=== PATIENT | female | born 1960 | race Hispanic/Latino ===

== ENCOUNTER → 2017-04-10 | Outpatient (CLI) | payer MEDICARE ==
[~2017-04-10] MED LIST: ASPI-1181 PO; ATOR20TA65 PO; FURO20TA4 PO; GLIM2TAB3 PO; ISOS30TA6 PO; LISI10TA7 PO; LISI40TA4 PO; METF10004 PO; METO25TA3 PO; MONT10TA24 PO; PANT40TA25 PO; POTA20TA82 PO; POTA25TA13 PO; SERT100T12 PO; TRAM50TA2 PO
== END | disposition home or self-care (01) ==
LOC: RAH 08:27
PROVIDERS: ATTEND Family Medicine
DX: Z12.31 Encounter for screening mammogram for malignant neoplasm of breast (principal)
CPT/HCPCS: 77067

== ENCOUNTER 2017-05-07 18:00 | Inpatient (IN) | payer MEDICARE ==
[~2017-05-07] VITALS: Ht 175.3 cm; Wt 76.7 kg
[~2017-05-07 18:00] MED LIST changes: -ASPI-1181 PO; -ISOS30TA6 PO; -LISI10TA7 PO; -METO25TA3 PO; -MONT10TA24 PO; -PANT40TA25 PO; -POTA20TA82 PO; -TRAM50TA2 PO
[2017-05-07 18:23] LABS: BASOPHILS % (AUTO) 0.7 % (0.0-5.0); EOSINOPHILS % (AUTO) 1.1 % (0.0-8.0); HEMATOCRIT 37.3 % (36-48); LYMPHOCYTES % (AUTO) 28.3 % (21.0-51.0); MEAN CORPUSCULAR HEMOGLOBIN 29.3 pg (27.0-33.0); MEAN CORPUSCULAR HGB CONC 33.3 g/dL (32.0-36.0); MEAN CORPUSCULAR VOLUME 87.9 fL (79-99); MONOCYTES % (AUTO) 7.5 % (3.0-13.0); NEUTROPHILS % (AUTO) 62.4 % (40.0-77.0); PLATELET COUNT (AUTO) 270 K/uL (130-400); RED BLOOD CELL COUNT(AUTO) 4.24 MIL/uL (4.00-5.50); RED CELL DISTRIBUTION WIDTH 15.7 % (11.0-15.5); WHITE BLOOD COUNT (AUTO) 5.7 K/uL (4.8-10.8)
[2017-05-07 18:31] LABS: INR 0.95 (0.85-1.15); PARTIAL THROMBOPLASTIN TIME 23.4 SEC (26.3-35.5)
[2017-05-07 18:35] LABS: CREATININE 0.9 mg/dL (0.5-1.5); POTASSIUM 3.7 mmol/L (3.5-5.1)
[2017-05-07 18:40] LABS: ALBUMIN 3.5 g/dL (3.5-5.0); BILIRUBIN,TOTAL 0.3 mg/dL (0.2-1.0); TOTAL PROTEIN, SERUM 7.8 g/dL (6.0-8.3)
[2017-05-07] MEDS ORDERED: ASPIRIN 325 MG TABLET ONE (19:19)
[2017-05-07] MEDS ORDERED: ENOXAPARIN SODIUM 100 MG/1 ML SQ ONE (19:19)
[2017-05-07] MEDS ORDERED: NITROGLYCERIN 1GM/1 INCH PACKET TD ONE (20:33)
[2017-05-07] MEDS ORDERED: PANT40TA25 PO (21:16)
[2017-05-07] MEDS ORDERED: MONT10TA24 PO (21:19)
[2017-05-07] MEDS ORDERED: PANTOPRAZOLE SODIUM 40 MG TABLET.DR PO PRN (21:30)
[2017-05-07] MEDS: METOPROLOL TARTRATE 25 MG TAB PO SCH (21:49)
[2017-05-07] MEDS ORDERED: GLUCAGON 1MG KIT 1 MG ML IM PRN (22:00)
[2017-05-07] MEDS ORDERED: POTASSIUM CHLORIDE 20MEQ/100ML 100 ML IV PRN (22:00)
[2017-05-07] MEDS ORDERED: POTASSIUM CHLORIDE 20 MEQ ERTAB PO PRN (22:00)
[2017-05-07] MEDS ORDERED: LACTULOSE 20 GM/30 ML UDCUP PO PRN (22:00)
[2017-05-07] MEDS ORDERED: DEXTROSE 50%-WATER 50 ML DISP.SYRIN IV PRN (22:00)
[2017-05-07] MEDS ORDERED: ACETAMINOPHEN 325 MG TAB PO PRN ×2 (22:00)
[2017-05-07] MEDS ORDERED: LIDOCAINE HCL-MPF 1% 2ML VIAL IJ PRN (22:00)
[2017-05-07] MEDS ORDERED: POTASSIUM CHLORIDE 10% ELIXIR 20 MEQ/15 ML UDCUP PO PRN (22:00)
[2017-05-07] MEDS: SERTRALINE HCL 50 MG TABLET PO SCH (22:31)
[2017-05-07] MEDS: FAMOTIDINE 20MG TAB 20 MG TAB PO SCH (22:31)
[2017-05-07 23:22] VITALS: BP 128/72
[2017-05-08 00:14] LABS: CREATINE KINASE MB 0.5 ng/mL (0.5-3.6); CREATINE KINASE, TOTAL 41 U/L (21-232); MYOGLOBIN 43 ng/mL (10-92); TROPONIN I < 0.04 ng/mL (0.00-0.06)
[2017-05-08 03:39] VITALS: BP 147/74
[2017-05-08] MEDS: NITROGLYCERIN 1GM/1 INCH PACKET TD SCH ×3 (04:14→20:35)
[2017-05-08] MEDS: INSULIN R PO SSI SQ SCH ×4 (06:28→21:00)
[2017-05-08 06:30] LABS: HEMATOCRIT 33.8 % (36-48); MEAN CORPUSCULAR HEMOGLOBIN 30.2 pg (27.0-33.0); MEAN CORPUSCULAR HGB CONC 34.5 g/dL (32.0-36.0); MEAN CORPUSCULAR VOLUME 87.6 fL (79-99); NUCLEATED RED BLOOD CELLS 0.1 % (0.0-0.19); PLATELET COUNT (AUTO) 242 K/uL (130-400); RED BLOOD CELL COUNT(AUTO) 3.86 MIL/uL (4.00-5.50); RED CELL DISTRIBUTION WIDTH 15.4 % (11.0-15.5); WHITE BLOOD COUNT (AUTO) 4.9 K/uL (4.8-10.8)
[2017-05-08 06:53] LABS: CARBON DIOXIDE 33 mmol/L (21-32); CHLORIDE 110 mmol/L (101-111); CHOLESTEROL 146 mg/dL (<200); CREATINE KINASE MB 0.5 ng/mL (0.5-3.6); CREATINE KINASE, TOTAL 44 U/L (21-232); CREATININE 0.8 mg/dL (0.5-1.5); GLOMERULAR FILTR. RATE CALC 78 mL/min (>60); GLUCOSE,RANDOM 104 mg/dL (70-105); HDL CHOLESTEROL 64 mg/dL (35-85); LDL DIRECT 76 mg/dL (0-99); MYOGLOBIN 39 ng/mL (10-92); SODIUM SERUM 145 mmol/L (136-145); TRIGLYCERIDES 139 mg/dL (30-200); TROPONIN I < 0.04 ng/mL (0.00-0.06); UREA NITROGEN, BLOOD 15 mg/dL (7-18)
[2017-05-08 06:59] LABS: INR 1.02 (0.85-1.15); PARTIAL THROMBOPLASTIN TIME 27.8 SEC (26.3-35.5); PROTHROMBIN TIME 10.7 SEC (9.6-11.6)
[2017-05-08 08:00] VITALS: BP 114/60
[2017-05-08] MEDS: METFORMIN HCL 500 MG TABLET PO SCH ×2 (08:00→16:53)
[2017-05-08] MEDS: METOPROLOL TARTRATE 25 MG TAB PO SCH ×2 (08:54→20:34)
[2017-05-08] MEDS: ASPIRIN 325 MG TABLET PO SCH (08:56)
[2017-05-08] MEDS: MONTELUKAST SODIUM 10 MG TAB PO SCH (08:56)
[2017-05-08] MEDS: FAMOTIDINE 20MG TAB 20 MG TAB PO SCH ×2 (08:56→20:34)
[2017-05-08] MEDS ORDERED: REGADENOSON 0.4 MG/5 ML PF SYG IVP SCH (10:15)
[2017-05-08] MEDS: INSULIN HUMULIN R 100 UNIT/ML 3ML SQ SCH ×3 (11:30→21:00)
[2017-05-08 12:45] VITALS: BP 138/75
[2017-05-08 16:00] VITALS: BP 137/65
[2017-05-08 19:42] VITALS: BP 152/72
[2017-05-08] MEDS: SERTRALINE HCL 50 MG TABLET PO SCH (20:33)
[2017-05-08] MEDS ORDERED: GLIMEPIRIDE 2 MG TABLET PO SCH (21:00)
[2017-05-08] MEDS ORDERED: FUROSEMIDE 20 MG TABLET PO SCH (21:00)
[2017-05-08] MEDS ORDERED: ATORVASTATIN CALCIUM 20 MG TABLET PO SCH (21:00)
[2017-05-08] MEDS ORDERED: LISINOPRIL 40 MG TABLET PO SCH (21:00)
[2017-05-08 23:25] VITALS: BP 128/66
[2017-05-09] VITALS (11 sets, daily range): BP systolic 99–147; BP diastolic 53–73
[2017-05-09] MEDS: NITROGLYCERIN 1GM/1 INCH PACKET TD SCH (03:47)
[2017-05-09] MEDS: INSULIN R PO SSI SQ SCH ×3 (05:40→16:30)
[2017-05-09] MEDS: INSULIN HUMULIN R 100 UNIT/ML 3ML SQ SCH ×3 (05:40→16:30)
[2017-05-09] MEDS: METFORMIN HCL 500 MG TABLET PO SCH ×2 (08:00→08:45)
[2017-05-09] MEDS: METOPROLOL TARTRATE 25 MG TAB PO SCH ×2 (08:45→09:00)
[2017-05-09] MEDS: FAMOTIDINE 20MG TAB 20 MG TAB PO SCH ×2 (08:45→09:00)
[2017-05-09] MEDS: ASPIRIN 325 MG TABLET PO SCH ×2 (08:45→09:00)
[2017-05-09] MEDS: MONTELUKAST SODIUM 10 MG TAB PO SCH ×2 (08:45→09:00)
[2017-05-09] MEDS: ENOXAPARIN SODIUM 40 MG/0.4 ML SYRINGE SQ SCH ×2 (08:46→09:00)
[2017-05-09] MEDS ORDERED: SODIUM CHLORIDE 0.9% 500ML 500 ML IV SCH (14:48)
[2017-05-09] MEDS ORDERED: HEPARIN SODIUM 1000UNIT/ML 10ML VIAL ONE (14:56)
[2017-05-09] MEDS ORDERED: NITROGLYCERIN 5 MG/ML 10 ML VIAL IV ONE (14:56)
[2017-05-09] MEDS ORDERED: ISOVUE-370 50ML VIAL IV ONE (14:56)
[2017-05-09] MEDS ORDERED: IOPAMIDOL-370 100 ML VIAL IV ONE ×2 (14:56→15:25)
[2017-05-09] MEDS ORDERED: LIDOCAINE HCL 2% 20ML ONE (14:56)
[2017-05-09] MEDS ORDERED: FENTANYL CITRATE PF 50 MCG/1 ML 2ML VIAL ONE (15:13)
[2017-05-09] MEDS ORDERED: MIDAZOLAM HCL 1 MG/ML 2ML VIAL ONE (15:13)
[2017-05-09] MEDS ORDERED: BIVALIRUDIN 250 MG/VIAL IV ONE (15:25)
[2017-05-09] MEDS ORDERED: SODIUM CHLORIDE 0.9% 1000ML 1,000 ML IV SCH (15:42)
[2017-05-09] MEDS ORDERED: HYDRALAZINE HCL 20 MG/ML VIAL IV PRN (15:45)
[2017-05-09] MEDS ORDERED: METOPROLOL TARTRATE 1 MG/ML 5ML VIAL IV PRN (15:45)
[2017-05-09] MEDS ORDERED: METO25TA3 PO (15:55)
[2017-05-09] MEDS ORDERED: ISOS30TA6 PO (15:55)
[2017-05-10] MEDS ORDERED: ASPIRIN 325 MG TABLET PO SCH (09:00)
[2017-05-14] MEDS ORDERED: POTA20TA82 PO (10:01)
[2017-05-14] MEDS ORDERED: ASPI-1181 PO (10:12)
== END 2017-05-09 20:33 | disposition home or self-care (01) | DRG 287 ==
LOC: EDH 18:00 → EDHIP 19:20 → OBSVTOIN 19:20 → 2AH 20:57
PROVIDERS: ADMIT Family Medicine; ATTEND Family Medicine
PROC: 4A023N7 Measurement of Cardiac Sampling and Pressure, Left Heart, Percutaneous Approach (ICD-10-PCS; principal; 2017-05-09)
PROC: B2111ZZ Fluoroscopy of Multiple Coronary Arteries using Low Osmolar Contrast (ICD-10-PCS; 2017-05-09)
PROC: B2151ZZ Fluoroscopy of Left Heart using Low Osmolar Contrast (ICD-10-PCS; 2017-05-09)
PROC: B3121ZZ Fluoroscopy of Left Subclavian Artery using Low Osmolar Contrast (ICD-10-PCS; 2017-05-09)
DX: T82.855A Stenosis of coronary artery stent, initial encounter (principal); E11.319 Type 2 diabetes mellitus with unspecified diabetic retinopathy without macular edema; E11.40 Type 2 diabetes mellitus with diabetic neuropathy, unspecified; I25.110 Atherosclerotic heart disease of native coronary artery with unstable angina pectoris; E78.2 Mixed hyperlipidemia; F32.9 Major depressive disorder, single episode, unspecified; I10 Essential (primary) hypertension; Y83.1 Surgical operation with implant of artificial internal device as the cause of abnormal reaction of the patient, or of later complication, without mention of misadventure at the time of the procedure; K29.70 Gastritis, unspecified, without bleeding; Z82.49 Family history of ischemic heart disease and other diseases of the circulatory system; Y92.89 Other specified places as the place of occurrence of the external cause; Z28.21 Immunization not carried out because of patient refusal; Z98.84 Bariatric surgery status; Z88.0 Allergy status to penicillin
CPT/HCPCS: 36415; 71045; 78452; 80048; 80053; 80061; 82550; 82553; 82948; 83874; 84484; 85025; 85027; 85610; 85730; 93005; 93017; 93458; 96374; 99152; 99153; 99291; A9500; C1760; C1894; J0583; J1644; J1650; J2250; J2785; J3010; J3490; Q9967

== ENCOUNTER 2017-05-14 11:30 | Inpatient (IN) | payer MEDICARE ==
[~2017-05-14] VITALS: Ht 170.2 cm; Wt 78.5 kg
[2017-05-14 09:55] VITALS: BP 90/60
[2017-05-14 10:01] LABS: BASOPHILS % (AUTO) 0.6 % (0.0-5.0); EOSINOPHILS % (AUTO) 1.5 % (0.0-8.0); HEMATOCRIT 35.5 % (36-48); LYMPHOCYTES % (AUTO) 33.6 % (21.0-51.0); MEAN CORPUSCULAR HEMOGLOBIN 29.6 pg (27.0-33.0); MEAN CORPUSCULAR VOLUME 87.2 fL (79-99); MONOCYTES % (AUTO) 10.2 % (3.0-13.0); NEUTROPHILS % (AUTO) 54.1 % (40.0-77.0); PLATELET COUNT (AUTO) 275 K/uL (130-400); RED BLOOD CELL COUNT(AUTO) 4.07 MIL/uL (4.00-5.50); RED CELL DISTRIBUTION WIDTH 15.8 % (11.0-15.5); WHITE BLOOD COUNT (AUTO) 5.3 K/uL (4.8-10.8)
[2017-05-14 10:11] LABS: ALBUMIN 3.5 g/dL (3.5-5.0); BILIRUBIN,TOTAL 0.4 mg/dL (0.2-1.0); CREATININE 1.5 mg/dL (0.5-1.5); POTASSIUM 3.4 mmol/L (3.5-5.1); TOTAL PROTEIN, SERUM 7.7 g/dL (6.0-8.3)
[2017-05-14 10:18] LABS: HEMOGLOBIN A1C 7.3 % (4.0-6.0)
[2017-05-14 10:19] LABS: INR 0.93 (0.85-1.15); PARTIAL THROMBOPLASTIN TIME 24.2 SEC (26.3-35.5); PROTHROMBIN TIME 9.8 SEC (9.6-11.6)
[~2017-05-14 11:30] MED LIST changes: +ASPI-1181 PO; +CLINDAMYCIN 900 MG/D5% WATER 50 ML IV SCH; +ISOS30TA6 PO; +METO25TA3 PO; +MONT10TA24 PO; +PANT40TA25 PO; +POTA20TA82 PO; -POTA25TA13 PO
[2017-05-14 15:35] LABS: CHOLESTEROL 151 mg/dL (<200); HDL CHOLESTEROL 78 mg/dL (35-85); LDL DIRECT 78 mg/dL (0-99); TRIGLYCERIDES 107 mg/dL (30-200)
[2017-05-16] VITALS (12 sets, daily range): BP systolic 98–140; BP diastolic 47–68
[2017-05-16] MEDS ORDERED: SODIUM CHLORIDE 0.9% 1000ML 1,000 ML IV ONE ×2 (11:44→15:15)
[2017-05-16] MEDS ORDERED: VANCOMYCIN 1GM+NS 250ML 250 ML IV ONE (11:44)
[2017-05-16] MEDS ORDERED: BACITRACIN 50,000 UNIT VIAL ONE (13:05)
[2017-05-16] MEDS ORDERED: OCTYL 2-CYANOACRYLATE 1 EACH TP ONE (13:05)
[2017-05-16] MEDS ORDERED: PAPAVERINE HCL 30 MG/ML 2ML VIAL ONE (13:05)
[2017-05-16] MEDS ORDERED: PROPOFOL 10 MG/ML 20ML VIAL IV ONE (13:19)
[2017-05-16] MEDS ORDERED: MIDAZOLAM HCL 1 MG/ML 2ML VIAL ONE (13:20)
[2017-05-16] MEDS ORDERED: FENTANYL CITRATE PF 50 MCG/1 ML 2ML VIAL ONE (13:20)
[2017-05-16] MEDS ORDERED: ESMOLOL HCL 10 MG/ML 10 ML VIAL ONE (13:43)
[2017-05-16] MEDS ORDERED: LIDOCAINE PF 2% 5ML ABBOJECT ONE (13:43)
[2017-05-16] MEDS ORDERED: HEPARIN SODIUM 1000UNIT/ML 10ML VIAL ONE ×2 (13:43→13:57)
[2017-05-16] MEDS ORDERED: GLYCOPYRROLATE 0.2 MG/ML 5 ML VIAL ONE (13:43)
[2017-05-16] MEDS ORDERED: ROCURONIUM BROMIDE 10MG/1ML 5ML VL ONE (13:43)
[2017-05-16] MEDS ORDERED: EPINEPHRINE 1 MG/ML AMPULE ONE (13:43)
[2017-05-16] MEDS ORDERED: PROTAMINE SULFATE 10 MG/ML 25ML VIAL IV ONE (13:43)
[2017-05-16] MEDS ORDERED: MILRINONE-D5W 20 MG/100 ML 0 ML IV ONE (13:43)
[2017-05-16] MEDS ORDERED: NOREPINEPHRINE BITARTRATE 1 MG/1 ML ML IV ONE (13:43)
[2017-05-16] MEDS ORDERED: AMINOCAPROIC ACID 250 MG/ML 20 ML VIAL IV ONE (13:43)
[2017-05-16 13:53] LABS: ABG BASE EXCESS -1.7 mmol/L (-2.0-3.0); ABG HCO3 21.5 mmol/L (21.0-28.0); ABG OXYGEN SATURATION 98.9 % (95.0-99.0); ABG PCO2 31 mmHg (32-45)
[2017-05-16] MEDS ORDERED: THROMBIN-JMI 5000 UNIT/VIAL TP ONE (13:57)
[2017-05-16 14:43] LABS: ABG BASE EXCESS -3.4 mmol/L (-2.0-3.0); ABG HCO3 20.6 mmol/L (21.0-28.0); ABG OXYGEN SATURATION 98.8 % (95.0-99.0); ABG PCO2 34 mmHg (32-45)
[2017-05-16] MEDS ORDERED: SODIUM BICARB 50MEQ 50ML VIAL ONE ×2 (14:49→17:44)
[2017-05-16 15:12] LABS: ABG BASE EXCESS -1.4 mmol/L (-2.0-3.0); ABG HCO3 22.4 mmol/L (21.0-28.0); ABG OXYGEN SATURATION 98.5 % (95.0-99.0); ABG PCO2 34 mmHg (32-45)
[2017-05-16] MEDS ORDERED: FENTANYL CITRATE PF 50 MCG/1 ML 5ML AMP IV ONE (15:16)
[2017-05-16] MEDS ORDERED: POTASSIUM CHLORIDE 20MEQ/100ML 100 ML IV ONE (15:17)
[2017-05-16] MEDS: AMBU PUMP 1 EACH EACH MISC SCH ×2 (15:29→16:16)
[2017-05-16] MEDS ORDERED: SODIUM CHLORIDE 0.9% 500ML 500 ML IV SCH (15:32)
[2017-05-16] MEDS ORDERED: EPINEPHRINE 2 MG in SODIUM CHLORIDE 0.9% 250 ML IV PRN (15:45)
[2017-05-16] MEDS ORDERED: SODIUM CHLORIDE 0.9% 10 ML VIAL IVP PRN (15:45)
[2017-05-16] MEDS ORDERED: GLUCAGON 1MG KIT 1 MG ML IM PRN (15:45)
[2017-05-16] MEDS ORDERED: ALBUMIN (HUMAN) 5% 250 ML IV PRN (15:45)
[2017-05-16] MEDS ORDERED: CALCIUM GLUCONATE 1 GM in SODIUM CHLORIDE 0.9% 50 ML IV PRN (15:45)
[2017-05-16] MEDS ORDERED: ONDANSETRON HCL MDV 20ML 2 MG/ML VIAL IV PRN (15:45)
[2017-05-16] MEDS ORDERED: SODIUM BICARB 8.4% 50ML SYRINGE IV PRN (15:45)
[2017-05-16] MEDS ORDERED: SODIUM CHLORIDE 0.9% 250 ML IV PRN (15:45)
[2017-05-16] MEDS ORDERED: SODIUM CHLORIDE 0.9% 1000ML 1,000 ML IV SCH (15:45)
[2017-05-16] MEDS ORDERED: MORPHINE SULFATE 4 MG/1ML SYG IV PRN ×2 (15:45)
[2017-05-16] MEDS ORDERED: NOREPINEPHRINE 4MG/NS 250ML 250 ML IV PRN (15:45)
[2017-05-16] MEDS ORDERED: ACETAMINOPHEN 650 MG SUPPOSITORY RC PRN (15:45)
[2017-05-16] MEDS ORDERED: DEXTROSE 50%-WATER 50 ML DISP.SYRIN IV PRN (15:45)
[2017-05-16] MEDS ORDERED: PROPOFOL 1000 MG/100 ML 100 ML IV PRN (15:45)
[2017-05-16] MEDS ORDERED: MAGNESIUM 2GM PREMIX 50ML 50 ML IV PRN (15:45)
[2017-05-16] MEDS ORDERED: NITROGLYCERIN 50 MG/D5% WATER 250 BOT IV SCH (15:45)
[2017-05-16] MEDS ORDERED: POTASSIUM PHOS 15 mMOL+NS250ML 250 ML IV PRN (15:45)
[2017-05-16 15:56] LABS: ABG BASE EXCESS -3.5 mmol/L (-2.0-3.0); ABG HCO3 20.7 mmol/L (21.0-28.0); ABG OXYGEN SATURATION 98.4 % (95.0-99.0); ABG PCO2 34 mmHg (32-45)
[2017-05-16 16:00] LABS: HEMATOCRIT 28.5 % (36-48); MEAN CORPUSCULAR HEMOGLOBIN 30.3 pg (27.0-33.0); MEAN CORPUSCULAR HGB CONC 34.7 g/dL (32.0-36.0); MEAN CORPUSCULAR VOLUME 87.3 fL (79-99); PLATELET COUNT (AUTO) 242 K/uL (130-400); RED BLOOD CELL COUNT(AUTO) 3.27 MIL/uL (4.00-5.50); RED CELL DISTRIBUTION WIDTH 15.5 % (11.0-15.5); WHITE BLOOD COUNT (AUTO) 18.2 K/uL (4.8-10.8)
[2017-05-16] MEDS: POTASSIUM CHLORIDE 20MEQ/100ML 100 ML IV PRN ×3 (16:06→23:07)
[2017-05-16] MEDS: INSULIN REGULAR, HUMAN 3ML 100 UNIT in SODIUM CHLORIDE 0.9% 99 ML IV SCH ×2 (16:08)
[2017-05-16 16:16] LABS: CREATININE 0.9 mg/dL (0.5-1.5); MAGNESIUM 2.3 mg/dL (1.80-2.40); PHOSPHORUS 3.5 mg/dL (2.5-4.9); POTASSIUM 3.4 mmol/L (3.5-5.1)
[2017-05-16 21:38] LABS: MAGNESIUM 2.1 mg/dL (1.80-2.40); POTASSIUM 3.4 mmol/L (3.5-5.1)
[2017-05-16 21:42] LABS: ABG BASE EXCESS -1.7 mmol/L (-2.0-3.0); ABG HCO3 23.5 mmol/L (21.0-28.0); ABG OXYGEN SATURATION 97.9 % (95.0-99.0); ABG PCO2 42 mmHg (32-45)
[2017-05-16 22:58] LABS: ABG BASE EXCESS -0.9 mmol/L (-2.0-3.0); ABG OXYGEN SATURATION 98.2 % (95.0-99.0); ABG PCO2 41 mmHg (32-45)
[2017-05-16] MEDS: CLINDAMYCIN 900 MG/D5% WATER 50 ML IV SCH (23:44)
[2017-05-16] MEDS: HYDROCODONE/ACETAMINOPHEN 5/325 MG TAB PO PRN (23:56)
[2017-05-17] VITALS (29 sets, daily range): BP systolic 67–132; BP diastolic 39–75
[2017-05-17 04:08] LABS: HEMATOCRIT 26.6 % (36-48); MEAN CORPUSCULAR HEMOGLOBIN 29.5 pg (27.0-33.0); MEAN CORPUSCULAR HGB CONC 33.8 g/dL (32.0-36.0); MEAN CORPUSCULAR VOLUME 87.2 fL (79-99); PLATELET COUNT (AUTO) 220 K/uL (130-400); RED BLOOD CELL COUNT(AUTO) 3.05 MIL/uL (4.00-5.50); RED CELL DISTRIBUTION WIDTH 15.8 % (11.0-15.5); WHITE BLOOD COUNT (AUTO) 10.8 K/uL (4.8-10.8)
[2017-05-17 04:28] LABS: CREATININE 0.8 mg/dL (0.5-1.5); MAGNESIUM 2.2 mg/dL (1.80-2.40); PHOSPHORUS 2.6 mg/dL (2.5-4.9); POTASSIUM 4.1 mmol/L (3.5-5.1)
[2017-05-17] MEDS: POTASSIUM CHLORIDE 20MEQ/100ML 100 ML IV PRN (04:46)
[2017-05-17] MEDS: ACETAMINOPHEN 325 MG TAB PO PRN (05:27)
[2017-05-17] MEDS: HYDROCODONE/ACETAMINOPHEN 5/325 MG TAB PO PRN ×4 (05:51→20:12)
[2017-05-17] MEDS: SERTRALINE HCL 50 MG TABLET PO SCH (09:00)
[2017-05-17] MEDS: PANTOPRAZOLE SODIUM 40 MG TABLET.DR PO SCH (09:01)
[2017-05-17] MEDS: CLINDAMYCIN 900 MG/D5% WATER 50 ML IV SCH ×2 (09:02→16:00)
[2017-05-17] MEDS ORDERED: ALBUMIN (HUMAN) 5% 250 ML IV ONE (11:29)
[2017-05-17] MEDS: AMBU PUMP 1 EACH EACH MISC SCH (15:00)
[2017-05-17] MEDS: INSULIN REGULAR, HUMAN 3ML 100 UNIT in SODIUM CHLORIDE 0.9% 99 ML IV SCH ×2 (19:26)
[2017-05-17] MEDS: ATORVASTATIN CALCIUM 20 MG TABLET PO SCH (20:13)
[2017-05-18] VITALS (18 sets, daily range): BP systolic 91–136; BP diastolic 45–86
[2017-05-18] MEDS: HYDROCODONE/ACETAMINOPHEN 5/325 MG TAB PO PRN ×4 (02:07→21:12)
[2017-05-18] MEDS: ACETAMINOPHEN 325 MG TAB PO PRN (04:16)
[2017-05-18 04:39] LABS: HEMATOCRIT 26.1 % (36-48); MEAN CORPUSCULAR HEMOGLOBIN 30.9 pg (27.0-33.0); MEAN CORPUSCULAR HGB CONC 34.5 g/dL (32.0-36.0); MEAN CORPUSCULAR VOLUME 89.6 fL (79-99); PLATELET COUNT (AUTO) 192 K/uL (130-400); RED BLOOD CELL COUNT(AUTO) 2.91 MIL/uL (4.00-5.50); RED CELL DISTRIBUTION WIDTH 16.5 % (11.0-15.5); WHITE BLOOD COUNT (AUTO) 10.8 K/uL (4.8-10.8)
[2017-05-18 04:44] LABS: CREATININE 0.7 mg/dL (0.5-1.5); POTASSIUM 4.3 mmol/L (3.5-5.1)
[2017-05-18] MEDS: ASPIRIN 81MG TAB.CHEW PO SCH (08:40)
[2017-05-18] MEDS: MONTELUKAST SODIUM 10 MG TAB PO SCH (09:00)
[2017-05-18] MEDS: GLIMEPIRIDE 2 MG TABLET PO SCH (09:00)
[2017-05-18] MEDS: SERTRALINE HCL 50 MG TABLET PO SCH (09:00)
[2017-05-18] MEDS: PANTOPRAZOLE SODIUM 40 MG TABLET.DR PO SCH (11:14)
[2017-05-18] MEDS: INSULIN HUMULIN R 100 UNIT/ML 3ML SQ SCH ×3 (11:30→21:16)
[2017-05-18] MEDS: AMBU PUMP 1 EACH EACH MISC SCH (15:00)
[2017-05-18] MEDS: FUROSEMIDE 20 MG TABLET PO SCH (16:44)
[2017-05-18] MEDS ORDERED: METOPROLOL TARTRATE 25 MG TAB PO SCH (21:00)
[2017-05-18] MEDS: ATORVASTATIN CALCIUM 20 MG TABLET PO SCH (21:04)
[2017-05-18] MEDS: ENOXAPARIN SODIUM 30 MG/0.3 ML SQ SCH (21:11)
[2017-05-19 03:45] VITALS: BP 135/70
[2017-05-19] MEDS: INSULIN HUMULIN R 100 UNIT/ML 3ML SQ SCH ×4 (06:34→22:10)
[2017-05-19 07:00] VITALS: BP 143/69
[2017-05-19] MEDS: HYDROCODONE/ACETAMINOPHEN 5/325 MG TAB PO PRN ×3 (07:07→22:03)
[2017-05-19 11:00] VITALS: BP 110/60
[2017-05-19] MEDS: GLIMEPIRIDE 2 MG TABLET PO SCH (11:21)
[2017-05-19] MEDS: MONTELUKAST SODIUM 10 MG TAB PO SCH (11:21)
[2017-05-19] MEDS: ASPIRIN 81MG TAB.CHEW PO SCH (11:21)
[2017-05-19] MEDS: METOPROLOL TARTRATE 25 MG TAB PO SCH ×2 (11:21→22:01)
[2017-05-19] MEDS: PANTOPRAZOLE SODIUM 40 MG TABLET.DR PO SCH (11:22)
[2017-05-19] MEDS: FUROSEMIDE 20 MG TABLET PO SCH ×2 (11:22→18:09)
[2017-05-19] MEDS: SERTRALINE HCL 50 MG TABLET PO SCH (11:22)
[2017-05-19] MEDS: ENOXAPARIN SODIUM 30 MG/0.3 ML SQ SCH (11:23)
[2017-05-19] MEDS: AMBU PUMP 1 EACH EACH MISC SCH (15:00)
[2017-05-19 16:00] VITALS: BP 106/54
[2017-05-19 19:53] VITALS: BP 122/52
[2017-05-19] MEDS: ATORVASTATIN CALCIUM 20 MG TABLET PO SCH (22:01)
[2017-05-19] MEDS: LISINOPRIL 10 MG TABLET PO SCH (22:02)
[2017-05-19 23:28] VITALS: BP 105/56
[2017-05-20 03:52] VITALS: BP 121/60
[2017-05-20 04:24] LABS: CREATININE 0.7 mg/dL (0.5-1.5); POTASSIUM 3.4 mmol/L (3.5-5.1)
[2017-05-20] MEDS: INSULIN HUMULIN R 100 UNIT/ML 3ML SQ SCH ×3 (06:38→16:42)
[2017-05-20 07:46] VITALS: BP 132/67
[2017-05-20] MEDS: GLIMEPIRIDE 2 MG TABLET PO SCH (09:04)
[2017-05-20] MEDS: MONTELUKAST SODIUM 10 MG TAB PO SCH (09:05)
[2017-05-20] MEDS: LISINOPRIL 10 MG TABLET PO SCH (09:05)
[2017-05-20] MEDS: SERTRALINE HCL 50 MG TABLET PO SCH (09:05)
[2017-05-20] MEDS: ASPIRIN 81MG TAB.CHEW PO SCH (09:05)
[2017-05-20] MEDS: METOPROLOL TARTRATE 25 MG TAB PO SCH (09:05)
[2017-05-20] MEDS: PANTOPRAZOLE SODIUM 40 MG TABLET.DR PO SCH (09:05)
[2017-05-20] MEDS: FUROSEMIDE 20 MG TABLET PO SCH ×2 (09:05→16:41)
[2017-05-20] MEDS: HYDROCODONE/ACETAMINOPHEN 5/325 MG TAB PO PRN ×2 (09:06→16:47)
[2017-05-20] MEDS: ENOXAPARIN SODIUM 30 MG/0.3 ML SQ SCH (09:07)
[2017-05-20] MEDS ORDERED: TRAM50TA2 PO (09:21)
[2017-05-20] MEDS ORDERED: LISI10TA7 PO (09:21)
[2017-05-20 11:40] VITALS: BP 105/43
[2017-05-20] MEDS: AMBU PUMP 1 EACH EACH MISC SCH (13:50)
[2017-05-20 16:11] VITALS: BP 103/60
== END 2017-05-20 18:09 | disposition home or self-care (01) | DRG 236 ==
LOC: DAHIP 05-16 10:39 → 2CV 05-16 10:57 → 2CH 05-17 04:58 → 2AH 05-18 17:01
PROVIDERS: ADMIT Thoracic Surgery (Cardiothoracic Vascular Surgery); ATTEND Thoracic Surgery (Cardiothoracic Vascular Surgery)
PROC: 02100Z9 Bypass Coronary Artery, One Artery from Left Internal Mammary, Open Approach (ICD-10-PCS; principal; 2017-05-16 13:00)
PROC: 5A1935Z Respiratory Ventilation, Less than 24 Consecutive Hours (ICD-10-PCS; 2017-05-16 13:00)
PROC: 0BH17EZ Insertion of Endotracheal Airway into Trachea, Via Natural or Artificial Opening (ICD-10-PCS; 2017-05-16 13:00)
DX: T82.855A Stenosis of coronary artery stent, initial encounter (principal); E11.65 Type 2 diabetes mellitus with hyperglycemia; E66.01 Morbid (severe) obesity due to excess calories; I50.32 Chronic diastolic (congestive) heart failure; E78.5 Hyperlipidemia, unspecified; E87.6 Hypokalemia; F32.9 Major depressive disorder, single episode, unspecified; I10 Essential (primary) hypertension; I25.10 Atherosclerotic heart disease of native coronary artery without angina pectoris; K21.9 Gastro-esophageal reflux disease without esophagitis; G47.33 Obstructive sleep apnea (adult) (pediatric); Y83.1 Surgical operation with implant of artificial internal device as the cause of abnormal reaction of the patient, or of later complication, without mention of misadventure at the time of the procedure; Z88.0 Allergy status to penicillin; Z79.82 Long term (current) use of aspirin; Z79.84 Long term (current) use of oral hypoglycemic drugs; Z79.899 Other long term (current) drug therapy; Z98.84 Bariatric surgery status; Z95.1 Presence of aortocoronary bypass graft; Z82.49 Family history of ischemic heart disease and other diseases of the circulatory system
CPT/HCPCS: 36415; 36600; 71045; 71046; 73562; 80048; 80053; 80061; 82330; 82435; 82803; 82947; 82948; 83036; 83605; 83735; 84100; 84132; 84295; 85018; 85025; 85027; 85347; 85610; 85730; 86850; 86900; 86901; 86922; 93005; 93306; 93880; 94002; 94010; 94150; 97039; A7048; J0171; J1644; J1650; J1815; J2001; J2250; J2260; J2270; J2440; J2704; J2720; J3010; J3370; J3480; J3490; J7030; J7040; J7070; P9045

== ENCOUNTER 2017-05-14 23:00 | Emergency (ER) | payer MEDICARE ==
[~2017-05-14 23:00] MED LIST changes: -CLINDAMYCIN 900 MG/D5% WATER 50 ML IV SCH; +POTA25TA13 PO
[2017-05-15] MEDS ORDERED: ACETAMINOPHEN-CODEINE 300/30MG TAB ONE (00:08)
== END 2017-05-15 00:28 | disposition home or self-care (01) ==
LOC: EDH 23:00
DX: S80.01XA Contusion of right knee, initial encounter (principal); I25.10 Atherosclerotic heart disease of native coronary artery without angina pectoris; I10 Essential (primary) hypertension; E11.9 Type 2 diabetes mellitus without complications; Z88.0 Allergy status to penicillin; X58.XXXA Exposure to other specified factors, initial encounter; Y93.89 Activity, other specified; Y92.098 Other place in other non-institutional residence as the place of occurrence of the external cause; Y99.8 Other external cause status
CPT/HCPCS: 29505; 73562

== ENCOUNTER 2017-11-01 15:23 | Inpatient (IN) | payer MEDICARE ==
[~2017-11-01] VITALS: Ht 172.7 cm; Wt 74.6 kg
[~2017-11-01 15:23] MED LIST changes: -ISOS30TA6 PO; +LISI10TA7 PO; -LISI40TA4 PO; +METF-446 PO; -METF10004 PO; -POTA25TA13 PO; +TRAM50TA2 PO
[2017-11-01] MEDS ORDERED: NITROGLYCERIN 0.4 MG SL TAB SL ONE (15:41)
[2017-11-01] MEDS ORDERED: ASPIRIN 325 MG TABLET ONE (15:41)
[2017-11-01 15:45] LABS: BASOPHILS % (AUTO) 0.7 % (0.0-5.0); EOSINOPHILS % (AUTO) 1.2 % (0.0-8.0); HEMATOCRIT 29.8 % (36-48); LYMPHOCYTES % (AUTO) 34.1 % (21.0-51.0); MEAN CORPUSCULAR HEMOGLOBIN 25.4 pg (27.0-33.0); MEAN CORPUSCULAR HGB CONC 32.3 g/dL (32.0-36.0); MEAN CORPUSCULAR VOLUME 78.5 fL (79-99); PLATELET COUNT (AUTO) 297 K/uL (130-400); RED CELL DISTRIBUTION WIDTH 17.5 % (11.0-15.5); WHITE BLOOD COUNT (AUTO) 4.5 K/uL (4.8-10.8)
[2017-11-01] MEDS ORDERED: MORPHINE SULFATE 4 MG/1ML SYG ONE ×3 (15:54→17:39)
[2017-11-01] MEDS ORDERED: ONDANSETRON HCL 4 MG/2 ML VIAL ONE ×3 (15:54→21:13)
[2017-11-01 15:57] LABS: CREATININE 0.9 mg/dL (0.5-1.5); INR 0.96 (0.85-1.15); POTASSIUM 3.2 mmol/L (3.5-5.1); PROTHROMBIN TIME 10.1 SEC (9.6-11.6)
[2017-11-01 16:01] LABS: ALBUMIN 3.2 g/dL (3.5-5.0); BILIRUBIN,TOTAL 0.2 mg/dL (0.2-1.0); TOTAL PROTEIN, SERUM 7.1 g/dL (6.0-8.3)
[2017-11-01] MEDS ORDERED: IOHEXOL-350 75 ML VIAL IV ONE (16:36)
[2017-11-01] MEDS ORDERED: ONDANSETRON HCL MDV 20ML 2 MG/ML VIAL IVP PRN (18:30)
[2017-11-01] MEDS ORDERED: SODIUM CHLORIDE 0.9% 1000ML 1,000 ML IV ONE (21:13)
[2017-11-01] MEDS ORDERED: MORPHINE SULFATE 2 MG/ML 1ML SYG ONE (21:13)
[2017-11-01] MEDS ORDERED: POTASSIUM BICARB/CIT AC 25 MEQ TABLET.EFF ONE (22:07)
[2017-11-01 22:25] VITALS: BP 145/70
[2017-11-01] MEDS: SODIUM CHLORIDE 0.9% 1000ML 1,000 ML IV SCH (22:25)
[2017-11-02] MEDS: MORPHINE SULFATE 2 MG/ML 1ML SYG IV PRN ×3 (03:49→19:41)
[2017-11-02 04:08] VITALS: BP 111/54
[2017-11-02 05:50] LABS: APPEARANCE,URINE Clear (CLEAR); BILIRUBIN,URINE Negative (NEGATIVE); COLOR,URINE Yellow (YELLOW); GLUCOSE, URINE (UA) Negative (NEGATIVE); KETONES,URINE Trace mg/dL (NEGATIVE); LEUKOCYTE ESTERASE ,URINE Negative (NEGATIVE); NITRATE,URINE Negative (NEGATIVE); OCCULT BLOOD,URINE Negative (NEGATIVE); PH,URINE 5.5 (5.0-8.0); PROTEIN,URINE POS 1+ (NEGATIVE)
[2017-11-02 06:11] LABS: RBC,URINE 0-1 /HPF (0-1); WBC,URINE 0-1 /HPF (0-1)
[2017-11-02 06:12] LABS: BACTERIA,URINE Rare /HPF (None Seen)
[2017-11-02] MEDS: SODIUM CHLORIDE 0.9% 1000ML 1,000 ML IV SCH (06:32)
[2017-11-02 07:00] VITALS: BP 122/57
[2017-11-02] MEDS ORDERED: HYDR-4064 PO (08:50)
[2017-11-02] MEDS ORDERED: NITR0.4T SL (08:50)
[2017-11-02] MEDS ORDERED: LISI40TA4 PO (08:50)
[2017-11-02] MEDS: ATORVASTATIN CALCIUM 40 MG TABLET PO SCH (09:00)
[2017-11-02] MEDS: PANTOPRAZOLE SODIUM 40 MG TABLET.DR PO SCH (09:00)
[2017-11-02] MEDS: ASPIRIN 81MG TAB.CHEW PO SCH (09:00)
[2017-11-02 12:01] VITALS: BP 107/58
[2017-11-02] MEDS ORDERED: BISACODYL 10 MG SUPP.RECT RC PRN (13:15)
[2017-11-02] MEDS ORDERED: NS-20 MEQ KCL 1000ML 1,000 ML IV SCH (13:15)
[2017-11-02] MEDS: NS-20 MEQ KCL 1000ML 1,000 ML IV SCH ×2 (14:53→23:00)
[2017-11-02 16:00] VITALS: BP 119/54
[2017-11-02 20:12] VITALS: BP 132/62
[2017-11-03 00:16] VITALS: BP 117/57
[2017-11-03] MEDS: NS-20 MEQ KCL 1000ML 1,000 ML IV SCH ×2 (00:58→14:11)
[2017-11-03] MEDS: MORPHINE SULFATE 2 MG/ML 1ML SYG IV PRN ×3 (01:19→14:01)
[2017-11-03 04:16] VITALS: BP 125/57
[2017-11-03 07:24] LABS: BASOPHILS % (AUTO) 0.3 % (0.0-5.0); HEMATOCRIT 26.8 % (36-48); MEAN CORPUSCULAR HEMOGLOBIN 24.4 pg (27.0-33.0); MEAN CORPUSCULAR HGB CONC 31.1 g/dL (32.0-36.0); MEAN CORPUSCULAR VOLUME 78.3 fL (79-99); MONOCYTES % (AUTO) 6.2 % (3.0-13.0); NEUTROPHILS % (AUTO) 87.5 % (40.0-77.0); PLATELET COUNT (AUTO) 252 K/uL (130-400); RED BLOOD CELL COUNT(AUTO) 3.42 MIL/uL (4.00-5.50); RED CELL DISTRIBUTION WIDTH 17.4 % (11.0-15.5); WHITE BLOOD COUNT (AUTO) 11.8 K/uL (4.8-10.8)
[2017-11-03 07:29] VITALS: BP 127/60
[2017-11-03 07:32] LABS: CREATININE 0.8 mg/dL (0.5-1.5); POTASSIUM 3.9 mmol/L (3.5-5.1)
[2017-11-03] MEDS: ATORVASTATIN CALCIUM 40 MG TABLET PO SCH (08:28)
[2017-11-03] MEDS: ASPIRIN 81MG TAB.CHEW PO SCH (08:28)
[2017-11-03] MEDS: PANTOPRAZOLE SODIUM 40 MG TABLET.DR PO SCH (08:28)
[2017-11-03] MEDS: LACTULOSE 20 GM/30 ML UDCUP PO PRN ×2 (09:20→14:11)
[2017-11-03] MEDS ORDERED: LEVOFLOXACIN 500 MG/D5W 100 ML 100 ML IV SCH (10:00)
[2017-11-03 12:03] VITALS: BP 142/68
[2017-11-03 15:52] VITALS: BP 139/84
== END 2017-11-03 17:30 | disposition short-term general hospital (02) | DRG 392 ==
LOC: EDH 15:23 → EDHIP 18:23 → 3AH 21:05
PROVIDERS: ADMIT Hospitalist; ATTEND Hospitalist
DX: K29.70 Gastritis, unspecified, without bleeding (principal); I10 Essential (primary) hypertension; E11.9 Type 2 diabetes mellitus without complications; I25.10 Atherosclerotic heart disease of native coronary artery without angina pectoris; R13.10 Dysphagia, unspecified; E78.5 Hyperlipidemia, unspecified; E66.01 Morbid (severe) obesity due to excess calories; Z68.25 Body mass index [BMI] 25.0-25.9, adult; Z88.0 Allergy status to penicillin; Z98.84 Bariatric surgery status; Z95.1 Presence of aortocoronary bypass graft; Z83.3 Family history of diabetes mellitus; Z82.3 Family history of stroke; Z82.5 Family history of asthma and other chronic lower respiratory diseases; Z82.49 Family history of ischemic heart disease and other diseases of the circulatory system; Z82.0 Family history of epilepsy and other diseases of the nervous system
CPT/HCPCS: 36415; 71045; 74177; 76705; 80048; 80053; 81001; 82948; 83690; 84484; 85025; 85610; 85730; 93005; 93306; J1956; J2270; J2405; J3480; J7030; Q9967

== ENCOUNTER → 2018-01-30 | Outpatient (CLI) | payer OTHER, MEDICARE ==
[~2018-01-30] MED LIST changes: +HYDR-4064 PO; +LISI40TA4 PO; +NITR0.4T SL
== END | disposition home or self-care (01) ==
LOC: RAH 12:42
PROVIDERS: ATTEND Family Medicine
DX: M81.0 Age-related osteoporosis without current pathological fracture (principal)
CPT/HCPCS: 78306; A9503

== ENCOUNTER 2018-04-14 06:20 | Emergency (ER) | payer OTHER, MEDICARE ==
[2018-04-14] MEDS ORDERED: ONDANSETRON ODT 4 MG TAB ONE (06:37)
[2018-04-14] MEDS ORDERED: HYDROCODONE/ACETAMINOPHEN 5/325 MG TAB ONE (06:38)
[2018-04-14] MEDS ORDERED: LIDOCAINE 5% TOPICAL PATCH TP ONE (07:31)
== END 2018-04-14 07:48 | disposition home or self-care (01) ==
LOC: EDH 06:20
DX: M79.671 Pain in right foot (principal); I25.810 Atherosclerosis of coronary artery bypass graft(s) without angina pectoris; E11.9 Type 2 diabetes mellitus without complications; E78.5 Hyperlipidemia, unspecified; I10 Essential (primary) hypertension; Z88.0 Allergy status to penicillin; Z98.84 Bariatric surgery status
CPT/HCPCS: 73630; 82948

== ENCOUNTER → 2018-06-24 | Outpatient (CLI) | payer OTHER, MEDICARE | END | disposition home or self-care (01) | LOC: RAH 07:25 | PROVIDERS: ATTEND Internal Medicine Gastroenterology | DX: K76.0 Fatty (change of) liver, not elsewhere classified (principal); Z90.49 Acquired absence of other specified parts of digestive tract | CPT/HCPCS: 76700 ==

== ENCOUNTER → 2018-10-17 | Outpatient (CLI) | payer OTHER, MEDICARE | END | disposition home or self-care (01) | LOC: RAH 15:08 | PROVIDERS: ATTEND Family Medicine | DX: Z12.31 Encounter for screening mammogram for malignant neoplasm of breast (principal) | CPT/HCPCS: 77067 ==

== ENCOUNTER 2019-04-13 19:07 | Observation (INO) | payer OTHER, MEDICARE ==
[~2019-04-13] VITALS: Ht 170.2 cm; Wt 73.7 kg
[~2019-04-13 19:07] MED LIST changes: -ASPI-1181 PO; +ASPI-1443 PO; -GLIM2TAB3 PO; +GLIM2TAB30 PO; -MONT10TA24 PO; +MONT10TA26 PO; -PANT40TA25 PO; +PANT40TA54 PO
[2019-04-13] MEDS ORDERED: ASPIRIN 325 MG TABLET ONE (19:34)
[2019-04-13] MEDS ORDERED: NITROGLYCERIN 1GM/1 INCH PACKET TD ONE (19:34)
[2019-04-13 20:11] LABS: BASOPHILS % (AUTO) 0.5 % (0.0-5.0); HEMATOCRIT 37.3 % (36-48); LYMPHOCYTES % (AUTO) 23.8 % (21.0-51.0); MEAN CORPUSCULAR HEMOGLOBIN 27.6 pg (27.0-33.0); MEAN CORPUSCULAR HGB CONC 32.2 g/dL (32.0-36.0); MEAN CORPUSCULAR VOLUME 85.7 fL (79-99); MONOCYTES % (AUTO) 13.4 % (3.0-13.0); NEUTROPHILS % (AUTO) 61.1 % (40.0-77.0); PLATELET COUNT (AUTO) 229 K/uL (130-400); RED BLOOD CELL COUNT(AUTO) 4.35 MIL/uL (4.00-5.50); RED CELL DISTRIBUTION WIDTH 14.6 % (11.0-15.5); WHITE BLOOD COUNT (AUTO) 8.2 K/uL (4.8-10.8)
[2019-04-13 20:19] LABS: CREATININE 0.8 mg/dL (0.5-1.5); POTASSIUM 3.9 mmol/L (3.5-5.1)
[2019-04-13 20:23] LABS: ALBUMIN 3.4 g/dL (3.5-5.0); BILIRUBIN,TOTAL 0.4 mg/dL (0.2-1.0); INR 0.94 (0.85-1.15); PARTIAL THROMBOPLASTIN TIME 21.2 SEC (26.3-35.5); PROTHROMBIN TIME 9.9 SEC (9.6-11.6); TOTAL PROTEIN, SERUM 7.5 g/dL (6.0-8.3)
[2019-04-13 20:33] LABS: B-TYPE NATRIURETIC PEPTIDE 53 pg/mL (0-100)
[2019-04-13 21:04] LABS: APPEARANCE,URINE Clear (CLEAR); BILIRUBIN,URINE Negative (NEGATIVE); COLOR,URINE Yellow (YELLOW); GLUCOSE, URINE (UA) Negative (NEGATIVE); KETONES,URINE 40 mg/dL (NEGATIVE); LEUKOCYTE ESTERASE ,URINE Negative (NEGATIVE); NITRATE,URINE Negative (NEGATIVE); OCCULT BLOOD,URINE Negative (NEGATIVE); PH,URINE 5.5 (5.0-8.0); PROTEIN,URINE POS 1+ mg/dL (NEGATIVE)
[2019-04-13 21:14] LABS: BACTERIA,URINE None Seen /HPF (None Seen); MUCUS,URINE Few LPF (None Seen); RBC,URINE 0-1 /HPF (0-1); WBC,URINE 0-1 /HPF (0-1)
[2019-04-14] VITALS (8 sets, daily range): BP systolic 96–150; BP diastolic 53–68
[2019-04-14] MEDS ORDERED: NITROGLYCERIN 1GM/1 INCH PACKET TD ONE (02:38)
--- NOTE | 2019-04-14 03:11 | NUR ---
ADMIT PT ADMITTED TO ROOM 415,AAOX3. NO CP VERBALIZED AT THIS TIME. NO NOTED RESPIRATORY DISTRESS. ADMISSION CARE DONE. ADMISSION V/S MONITORED, STABLE. TELE MONITOR APPLIED, PT ON RSR WITH HR=71 BPM. ADMISSION DATA BASE COMPLETED. KEPT COMFORTABLE IN BED. ENCOURAGED TO REST AND SLEEP. FALL PRECAUTIONS INITIATED. ORIENTED TO ROOM AND UNIT. PT'S FAMILY WILL BRING HOME MEDS TODAY. IN FOR MORE CARE AND MANAGEMENT. Addendum: 04/14/19 at 0326 by JAZZ HADDAD RN RN Amended: Links added.
[2019-04-14] MEDS ORDERED: HEPARIN SODIUM 5000UNIT/ML 1ML VIAL ONE (03:48)
[2019-04-14 04:21] LABS: HEMATOCRIT 35.3 % (36-48); MEAN CORPUSCULAR HEMOGLOBIN 27.6 pg (27.0-33.0); MEAN CORPUSCULAR HGB CONC 32.3 g/dL (32.0-36.0); MEAN CORPUSCULAR VOLUME 85.5 fL (79-99); PLATELET COUNT (AUTO) 220 K/uL (130-400); RED BLOOD CELL COUNT(AUTO) 4.13 MIL/uL (4.00-5.50); RED CELL DISTRIBUTION WIDTH 14.6 % (11.0-15.5); WHITE BLOOD COUNT (AUTO) 8.9 K/uL (4.8-10.8)
[2019-04-14 04:26] LABS: CREATININE 0.8 mg/dL (0.5-1.5); POTASSIUM 4.1 mmol/L (3.5-5.1)
[2019-04-14] MEDS: HEPARIN SODIUM 5000UNIT/ML 1ML VIAL SQ SCH ×3 (05:16→20:13)
[2019-04-14] MEDS: NITROGLYCERIN 1GM/1 INCH PACKET TD SCH ×3 (05:17→20:05)
--- NOTE | 2019-04-14 05:19 | NUR ---
ROUNDS PT RESTING WELL, NO COMPLAINTS VERBALIZED. KEPT RESTED AND COMFORTABLE. CALL LIGHT WITHIN REACH. FOR MORE CARE.
[2019-04-14] MEDS ORDERED: ALBUTEROL SULFATE 0.083% 2.5 MG/3 ML INH IH PRN (06:15)
[2019-04-14] MEDS ORDERED: AZELASTINE HCL NS PRN (06:15)
[2019-04-14] MEDS ORDERED: FLUTICASONE PROPIONATE 50MCG/SPRAY 16 GM BOTTLE NS PRN (06:15)
[2019-04-14] MEDS ORDERED: ESOM40CA54 PO (06:19)
[2019-04-14] MEDS ORDERED: LEVO5TAB13 PO (06:29)
[2019-04-14] MEDS ORDERED: ISOS30TA11 PO (06:29)
[2019-04-14] MEDS ORDERED: FLUT16H NASAL (06:29)
[2019-04-14] MEDS ORDERED: SUCR1TAB2 PO (06:29)
[2019-04-14] MEDS ORDERED: ALBU8.5H8 IH (06:29)
[2019-04-14] MEDS ORDERED: AZEL205. NS (06:29)
[2019-04-14 06:57] LABS: INR 0.96 (0.85-1.15); PROTHROMBIN TIME 10.1 SEC (9.6-11.6)
--- NOTE | 2019-04-14 07:20 | NUR ---
PATIENT C/P OF CHEST PAIN 1 FIRST NITRO SL GIVEN, VS CHARTED, TELEMETRY CALL PATIENT IN SR 7O'S , O2 AT 2 LITER NC INFUSING, O2 SATS 97% .
[2019-04-14] MEDS: NITROGLYCERIN 0.4 MG SL TAB SL SCH ×3 (07:21→07:34)
--- NOTE | 2019-04-14 07:29 | NUR ---
2ND NITRO GIVEN , O2 SATS 98$ B/P 128/65 P 72 PATIENT IN SR 70'S , STATES CHEST PAIN RESOLVING.
--- NOTE | 2019-04-14 07:36 | NUR ---
3RD NITRO GIVEN B/P 129/61 P 75 R 17 O2 SATS 97% ON 2 LITER NC PATIENT STATES CHEST PAIN 3 DOWN FROM 9
[2019-04-14] MEDS: FUROSEMIDE 20 MG TABLET PO SCH (08:14)
[2019-04-14] MEDS: LISINOPRIL 10 MG TABLET PO SCH ×2 (08:14→20:04)
[2019-04-14] MEDS: METFORMIN HCL 500 MG TABLET PO SCH ×2 (08:15→16:48)
[2019-04-14] MEDS: GLIMEPIRIDE 2 MG TABLET PO SCH (08:15)
[2019-04-14] MEDS: METOPROLOL SUCCINATE 50 MG TAB.SR.24H PO SCH (08:15)
[2019-04-14] MEDS: PANTOPRAZOLE SODIUM 40 MG TABLET.DR PO SCH (08:15)
[2019-04-14] MEDS: POTASSIUM CHLORIDE 20 MEQ ERTAB PO SCH (08:16)
[2019-04-14] MEDS: SERTRALINE HCL 50 MG TABLET PO SCH (08:16)
[2019-04-14] MEDS: MONTELUKAST SODIUM 10 MG TAB PO SCH (08:16)
[2019-04-14] MEDS: ***HM***(Levocetirizine Dihydrochloride 5 MG) PO SCH (08:19)
[2019-04-14] MEDS ORDERED: ASPIRIN 325MG EC TAB 325 MG TABLET.DR PO SCH (09:00)
[2019-04-14] MEDS ORDERED: ISOSORBIDE MONO 30MG TAB SR PO SCH (09:33)
[2019-04-14] MEDS: REGADENOSON 0.4 MG/5 ML PF SYG IVP SCH ×2 (10:30→16:20)
[2019-04-14] MEDS ORDERED: ISOSORBIDE MONO 30MG TAB SR PO ONE (14:00)
--- NOTE | 2019-04-14 15:52 | NUR ---
INITIAL CM NOTE MET W PATIENT AND HER BOYFRIEND AT BEDSIDE FOR DC PLANNING. PATIENT LIVES ALONE, BOYFRIEND LIVES IN NEXT APT, PT IS MOSTLY INDEPENDENT ,HAS SHOWER CHAIR AND ROLLING WALKER, BUT DOES NOT USES MUCH- CAN DRIVE, DOES VERY RARELY; HOME IS SAFE AND ACCESSIBLE, PATIENT STATES FEELS WEAK. HAS PROVIDER SERVICES 4 HRS /DAY DCP IS HOME, PENDING DIAGNOSTICS Addendum: 04/14/19 at 1556 by JAMIE ALEJANDRE RN CM Amended: Links added.
--- NOTE | 2019-04-14 20:15 | NUR ---
MEDS SHIFT ASSESSMENT DONE, PLEASE REFER TO CHART. NO COMPLAINTS OF CP NOR ANY CHEST DISCOMFORT AT THIS TIME. NO DISTRESS NOTED. DUE MEDS ADMINISTERED, TOLERATED WELL. PT WENT BACK IN BED AND CLAIMS SHE WANTS TO REST. KEPT COMFORTABLE. WILL MONITOR PT. Addendum: 04/14/19 at 2203 by JAZZ HADDAD RN RN Amended: Links added.
[2019-04-14] MEDS ORDERED: SUCRALFATE 1 GM TABLET PO SCH (21:00)
[2019-04-14] MEDS ORDERED: ATORVASTATIN CALCIUM 20 MG TABLET PO SCH (21:00)
--- NOTE | 2019-04-15 02:00 | NUR ---
ROUNDS PT RESTING WELL, FAIRLY ASLEEP WITH RESPIRATIONS EVEN AND UNLABORED. NO NOTED DISTRESS. KEPT RESTED AND COMFORTABLE. CALL LIGHT WITHIN REACH. WILL MONITOR PT.
[2019-04-15 03:48] VITALS: BP 108/49
[2019-04-15] MEDS: PANTOPRAZOLE SODIUM 40 MG TABLET.DR PO SCH (05:17)
[2019-04-15] MEDS: NITROGLYCERIN 1GM/1 INCH PACKET TD SCH (05:17)
[2019-04-15] MEDS: HEPARIN SODIUM 5000UNIT/ML 1ML VIAL SQ SCH ×2 (05:22→14:16)
--- NOTE | 2019-04-15 05:25 | NUR ---
MEDS NO COMPLAINTS OF CP THROUGHOUT THE SHIFT. AWAKENED PT FOR DUE MEDS, TOLERATED WELL. KEPT COMFORTABLE. FOR MORE CARE.
[2019-04-15 06:12] LABS: HEMATOCRIT 35.7 % (36-48); MEAN CORPUSCULAR HEMOGLOBIN 27.8 pg (27.0-33.0); MEAN CORPUSCULAR HGB CONC 32.5 g/dL (32.0-36.0); MEAN CORPUSCULAR VOLUME 85.6 fL (79-99); PLATELET COUNT (AUTO) 182 K/uL (130-400); RED BLOOD CELL COUNT(AUTO) 4.17 MIL/uL (4.00-5.50); RED CELL DISTRIBUTION WIDTH 15.1 % (11.0-15.5); WHITE BLOOD COUNT (AUTO) 7.7 K/uL (4.8-10.8)
[2019-04-15 06:27] LABS: POTASSIUM 4.2 mmol/L (3.5-5.1)
[2019-04-15 08:00] VITALS: BP 91/42
[2019-04-15] MEDS ORDERED: ISOSORBIDE MONO 30MG TAB SR PO SCH (09:00)
[2019-04-15] MEDS: FUROSEMIDE 20 MG TABLET PO SCH (09:00)
[2019-04-15] MEDS ORDERED: ASPIRIN 81MG TAB.CHEW PO SCH (09:00)
[2019-04-15] MEDS: ***HM***(Levocetirizine Dihydrochloride 5 MG) PO SCH (09:00)
[2019-04-15] MEDS: METOPROLOL SUCCINATE 50 MG TAB.SR.24H PO SCH (09:00)
[2019-04-15] MEDS: SERTRALINE HCL 50 MG TABLET PO SCH (09:00)
[2019-04-15] MEDS: METFORMIN HCL 500 MG TABLET PO SCH (09:11)
[2019-04-15] MEDS: POTASSIUM CHLORIDE 20 MEQ ERTAB PO SCH (09:11)
[2019-04-15] MEDS: GLIMEPIRIDE 2 MG TABLET PO SCH (09:15)
[2019-04-15] MEDS: MONTELUKAST SODIUM 10 MG TAB PO SCH (09:15)
[2019-04-15 12:00] VITALS: BP 111/55
--- NOTE | 2019-04-15 13:50 | NUR ---
SPOKE TO DARSHANA QUIÑONEZ REGARDING PTS BP AND HR. STATED TO TOLD METROPROLOL UNTIL BP OVER 100 AND HR OVER 60. NEW ORDERS GIVEN FOR BOLUS OF NS 250 MLS. REQUESTED CALL BACK WITH UPDATE ON PT.
[2019-04-15] MEDS: LISINOPRIL 10 MG TABLET PO SCH (14:11)
[2019-04-15] MEDS ORDERED: SODIUM CHLORIDE 0.9% 250 ML IV ONE (14:19)
[2019-04-15] MEDS ORDERED: SODIUM CHLORIDE 0.9% 1000ML 1,000 ML IV SCH (14:45)
--- NOTE | 2019-04-15 15:35 | NUR ---
CALLED TO INFORM DARSHANA QUIÑONEZ ON PT UPDATE. VITALS STABLE. NEW PARAMETERS GIVEN FOR PT TO MONITOR BP AND HEART RATE BEFORE TAKING METROPROLOL. DISCHARGE INSTRUCTIONS PROVIDED TO PT AND TO FOLLOW UP WITH PCP NEXT WEEK ON SATURDAY OR SATURDAY. PT STATED UNDERSTANDING.
[2019-04-15 16:00] VITALS: BP 121/74
== END 2019-04-15 19:21 | disposition home or self-care (01) ==
LOC: EDH 19:07 → EDHIP 23:00 → 4CH 23:52
PROVIDERS: ADMIT Internal Medicine Critical Care Medicine; ATTEND Internal Medicine Critical Care Medicine
DX: I25.110 Atherosclerotic heart disease of native coronary artery with unstable angina pectoris (principal); E78.5 Hyperlipidemia, unspecified; E11.9 Type 2 diabetes mellitus without complications; I10 Essential (primary) hypertension; F32.9 Major depressive disorder, single episode, unspecified; K21.9 Gastro-esophageal reflux disease without esophagitis; Z86.14 Personal history of Methicillin resistant Staphylococcus aureus infection; Z98.84 Bariatric surgery status; Z88.0 Allergy status to penicillin; Z95.1 Presence of aortocoronary bypass graft; Z95.5 Presence of coronary angioplasty implant and graft; Z72.0 Tobacco use
CPT/HCPCS: 36415 ×3; 71045; 78452; 80048 ×2; 80053; 81001; 82550; 82948 ×9; 83880; 84484 ×3; 85025; 85027 ×2; 85610 ×2; 85730; 93005 ×3; 93017; 93306; 94664; 96372 ×2; 99291; A9500 ×2; G0378 ×2; J1644 ×4; J2785; J7030; 96374; J7050

== ENCOUNTER → 2020-04-11 | Outpatient (CLI) | payer OTHER, MEDICARE ==
[~2020-04-11] MED LIST changes: +ALBU8.5H8 IH; -ASPI-1443 PO; +AZEL205. NS; +ESOM40CA54 PO; +FLUT16H NASAL; -HYDR-4064 PO; +ISOS30TA11 PO; +LEVO5TAB13 PO; +LISI10TA24 PO; -LISI10TA7 PO; -LISI40TA4 PO; -MONT10TA26 PO; +MONT10TA32 PO; -PANT40TA54 PO; +SERT-440 PO; -SERT100T12 PO; +SUCR1TAB2 PO; -TRAM50TA2 PO
== END | disposition home or self-care (01) ==
LOC: SHCH 13:52
PROVIDERS: ATTEND Internal Medicine Cardiovascular Disease
DX: I25.10 Atherosclerotic heart disease of native coronary artery without angina pectoris (principal)
CPT/HCPCS: 93306; 93356

== ENCOUNTER → 2021-08-02 | Outpatient (CLI) | payer OTHER, MEDICARE ==
[~2021-08-02] MED LIST changes: +MONT-39 PO; -MONT10TA32 PO; +POTA-202 PO; -POTA20TA82 PO
== END | disposition home or self-care (01) ==
LOC: RAH 09:42
PROVIDERS: ATTEND Internal Medicine Gastroenterology
DX: K76.0 Fatty (change of) liver, not elsewhere classified (principal); R10.13 Epigastric pain; Z90.49 Acquired absence of other specified parts of digestive tract
CPT/HCPCS: 76700

== ENCOUNTER 2021-09-01 15:44 | Emergency (ER) | payer OTHER, MEDICARE ==
[~2021-09-01] VITALS: Ht 170.2 cm; Wt 60.8 kg
[2021-09-01 16:17] LABS: BASOPHILS % (AUTO) 0.6 % (0.0-5.0); EOSINOPHILS % (AUTO) 1.6 % (0.0-8.0); HEMATOCRIT 34.5 % (36-48); LYMPHOCYTES % (AUTO) 31.8 % (21.0-51.0); MEAN CORPUSCULAR HEMOGLOBIN 25.8 pg (27.0-33.0); MEAN CORPUSCULAR HGB CONC 31.3 g/dL (32.0-36.0); MEAN CORPUSCULAR VOLUME 82.5 fL (79-99); MONOCYTES % (AUTO) 10.2 % (3.0-13.0); NEUTROPHILS % (AUTO) 55.2 % (40.0-77.0); PLATELET COUNT (AUTO) 161 K/uL (130-400); RED BLOOD CELL COUNT(AUTO) 4.18 MIL/uL (4.00-5.50); RED CELL DISTRIBUTION WIDTH 15.4 % (11.0-15.5); WHITE BLOOD COUNT (AUTO) 6.8 K/uL (4.8-10.8)
[2021-09-01 16:29] LABS: POTASSIUM 4.3 mmol/L (3.5-5.1)
[2021-09-01 16:34] LABS: ALBUMIN 3.3 g/dL (3.5-5.0); TOTAL PROTEIN, SERUM 7.1 g/dL (6.0-8.3)
[2021-09-01 17:00] LABS: APPEARANCE,URINE CLEAR (CLEAR); BILIRUBIN,URINE NEGATIVE (NEGATIVE); COLOR,URINE YELLOW (YELLOW); GLUCOSE, URINE (UA) >=1000 mg/dL (NEGATIVE); KETONES,URINE NEGATIVE (NEGATIVE); LEUKOCYTE ESTERASE ,URINE NEGATIVE (NEGATIVE); NITRATE,URINE NEGATIVE (NEGATIVE); OCCULT BLOOD,URINE TRACE-INTACT (NEGATIVE); PH,URINE 5.5 (5.0-8.0); PROTEIN,URINE TRACE mg/dL (NEGATIVE); UROBILINOGEN,URINE 0.2 mg/dL (0.2-1.0)
[2021-09-01] MEDS ORDERED: INSULIN HUMULIN R 100 UNIT/ML 3ML IV ONE (17:00)
[2021-09-01] MEDS ORDERED: 0.9%NACL 1000ML 1,000 ML IV ONE (17:00)
[2021-09-01 17:07] LABS: BACTERIA,URINE Rare /HPF (None Seen); RBC,URINE None Seen /HPF (0-1); SQUAMOUS EPITHELIAL CELL,UR 0-2 /HPF (0-2); WBC,URINE None Seen /HPF (0-1)
[2021-09-01 17:24] VITALS: BP 150/73
== END 2021-09-01 17:47 | disposition home or self-care (01) ==
LOC: EDH 15:44
DX: S00.01XA Abrasion of scalp, initial encounter (principal); E11.65 Type 2 diabetes mellitus with hyperglycemia; E78.00 Pure hypercholesterolemia, unspecified; I10 Essential (primary) hypertension; Z88.0 Allergy status to penicillin; Z79.899 Other long term (current) drug therapy; Z79.84 Long term (current) use of oral hypoglycemic drugs; Z98.890 Other specified postprocedural states; W18.09XA Striking against other object with subsequent fall, initial encounter; Y93.89 Activity, other specified; Y92.89 Other specified places as the place of occurrence of the external cause; Y99.8 Other external cause status
CPT/HCPCS: 99285; 70450; 96374; 96361; 84484; 80053; 85025; 82948; 81001; 36415; 72125; 93005; J1815; J7030

== ENCOUNTER → 2021-10-23 | Outpatient (CLI) | payer OTHER, MEDICARE | END | disposition home or self-care (01) | LOC: RAH 07:46 | PROVIDERS: ATTEND Family Medicine | DX: Z12.31 Encounter for screening mammogram for malignant neoplasm of breast (principal) | CPT/HCPCS: 77067 ==

== ENCOUNTER → 2022-01-23 | Outpatient (CLI) | payer OTHER, MEDICARE | END | disposition home or self-care (01) | LOC: RAH 08:01 | PROVIDERS: ATTEND Family Medicine | DX: M25.562 Pain in left knee (principal); S89.92XA Unspecified injury of left lower leg, initial encounter; X58.XXXA Exposure to other specified factors, initial encounter; Y93.89 Activity, other specified; Y92.89 Other specified places as the place of occurrence of the external cause; Y99.8 Other external cause status | CPT/HCPCS: 73721 ==

== ENCOUNTER → 2022-04-16 | Outpatient (CLI) | payer OTHER, MEDICARE ==
[2022-04-16 13:22] LABS: ALBUMIN 3.8 g/dL (3.5-5.0); POTASSIUM 3.1 mmol/L (3.5-5.1); TOTAL PROTEIN, SERUM 7.3 g/dL (6.0-8.3)
== END | disposition home or self-care (01) ==
LOC: LAB 08:07
PROVIDERS: ATTEND Internal Medicine Cardiovascular Disease
DX: I25.118 Atherosclerotic heart disease of native coronary artery with other forms of angina pectoris (principal)
CPT/HCPCS: 36415; 80053

== ENCOUNTER → 2022-04-19 | Outpatient (CLI) | payer OTHER, MEDICARE ==
[~2022-04-19] MED LIST changes: +IOHEXOL 350 MG/ML 100ML INFUS..BTL IV ONE
== END | disposition home or self-care (01) ==
LOC: RAH 09:28
PROVIDERS: ATTEND Internal Medicine Cardiovascular Disease
DX: I25.10 Atherosclerotic heart disease of native coronary artery without angina pectoris (principal); R07.9 Chest pain, unspecified
CPT/HCPCS: 75574; Q9967

== ENCOUNTER → 2022-04-25 | Outpatient (CLI) | payer OTHER, MEDICARE ==
[~2022-04-25] MED LIST changes: -IOHEXOL 350 MG/ML 100ML INFUS..BTL IV ONE
[2022-04-25 16:32] LABS: POTASSIUM 3.4 mmol/L (3.5-5.1)
== END | disposition home or self-care (01) ==
LOC: LAB 15:31
PROVIDERS: ATTEND Internal Medicine Cardiovascular Disease
DX: R07.9 Chest pain, unspecified (principal)
CPT/HCPCS: 36415; 80048

== ENCOUNTER → 2022-07-02 | Outpatient (CLI) | payer OTHER, MEDICARE ==
[2022-07-02 17:24] LABS: CREATININE 0.7 mg/dL (0.5-1.5); POTASSIUM 4.3 mmol/L (3.5-5.1)
== END | disposition home or self-care (01) ==
LOC: LAB 13:53
PROVIDERS: ATTEND Internal Medicine Cardiovascular Disease
DX: I10 Essential (primary) hypertension (principal)
CPT/HCPCS: 36415; 80048

== ENCOUNTER → 2022-07-04 | Outpatient (CLI) | payer OTHER, MEDICARE ==
[~2022-07-04] MED LIST changes: +IOHEXOL 350 MG/ML 100ML INFUS..BTL IV ONE
== END | disposition home or self-care (01) ==
LOC: RAH 09:09
PROVIDERS: ATTEND Internal Medicine Cardiovascular Disease
DX: R07.9 Chest pain, unspecified (principal)
CPT/HCPCS: 75574; Q9967

== ENCOUNTER 2022-09-24 06:32 | Day surgery (SDC) | payer OTHER, MEDICARE ==
[2022-09-20 13:51] LABS: BASOPHILS # (AUTO) 0.04 K/uL (0.00-0.20); BASOPHILS % (AUTO) 0.7 % (0.0-5.0); EOSINOPHILS # (AUTO) 0.04 K/uL (0.00-0.70); EOSINOPHILS % (AUTO) 0.7 % (0.0-8.0); HEMATOCRIT 33.3 % (36-48); IMMATURE GRANULOCYTE ABSOLUTE 0.01 K/uL (0-1); LYMPHOCYTES # (AUTO) 1.7 K/uL (1.0-4.8); LYMPHOCYTES % (AUTO) 29.6 % (21.0-51.0); MEAN CORPUSCULAR HEMOGLOBIN 23.6 pg (27.0-33.0); MEAN CORPUSCULAR HGB CONC 30.3 g/dL (32.0-36.0); MEAN CORPUSCULAR VOLUME 77.8 fL (79-99); MONOCYTES # (AUTO) 0.5 K/uL (0.1-1.0); MONOCYTES % (AUTO) 8.6 % (3.0-13.0); NEUTROPHILS # (AUTO) 3.4 K/uL (1.8-7.7); NEUTROPHILS % (AUTO) 60.2 % (40.0-77.0); PLATELET COUNT (AUTO) 338 K/uL (130-400); RED BLOOD CELL COUNT(AUTO) 4.28 MIL/uL (4.00-5.50); RED CELL DISTRIBUTION WIDTH 18.9 % (11.0-15.5); WHITE BLOOD COUNT (AUTO) 5.6 K/uL (4.8-10.8)
[2022-09-20 13:59] LABS: CREATININE 0.9 mg/dL (0.5-1.5); POTASSIUM 3.7 mmol/L (3.5-5.1)
[2022-09-20 14:13] LABS: INR 0.94 (0.85-1.15); PROTHROMBIN TIME 10.9 SEC (9.6-11.6)
[2022-09-20 14:14] LABS: PARTIAL THROMBOPLASTIN TIME 23.9 SEC (26.3-35.5)
[2022-09-20 16:32] VITALS: BP 113/63; PULSE 76; RESP 20
[2022-09-24] VITALS (11 sets, daily range): BP systolic 129–156; BP diastolic 51–77; PULSE 59–75; RESP 14–18
[~2022-09-24] VITALS: Ht 170.2 cm; Wt 53.1 kg
[~2022-09-24 06:32] MED LIST changes: -ALBU8.5H8 IH; +ASPI-1443 PO; -ATOR20TA65 PO; +ATOR40TA71 PO; -AZEL205. NS; +DULA3PEN SQ; +EMPA25TA PO; +ERGO500093 PO; -ESOM40CA54 PO; -FLUT16H NASAL; -GLIM2TAB30 PO; -IOHEXOL 350 MG/ML 100ML INFUS..BTL IV ONE; -ISOS30TA11 PO; +LANS30CA55 PO; -LEVO5TAB13 PO; +MECL-226 PO; -METO25TA3 PO; -MONT-39 PO; -POTA-202 PO; +RANO500T6 PO; -SUCR1TAB2 PO
[2022-09-24] MEDS ORDERED: 0.9%NACL 1000ML 1,000 ML IV ONE (07:42)
[2022-09-24] MEDS ORDERED: NITROGLYCERIN 50MG VIAL ONE (10:32)
[2022-09-24] MEDS ORDERED: IOHEXOL 350 MG/ML 100ML INFUS..BTL IV ONE (10:32)
[2022-09-24] MEDS ORDERED: BIVALIRUDIN 250 MG/VIAL IV ONE (10:32)
[2022-09-24] MEDS ORDERED: MIDAZOLAM HCL 1 MG/ML 2ML VIAL ONE (10:32)
[2022-09-24] MEDS ORDERED: LIDOCAINE HCL 400MG/20ML VIAL ONE (10:32)
[2022-09-24] MEDS ORDERED: FENTANYL CITRATE PF 50 MCG/1 ML 2ML VIAL ONE (10:32)
[2022-09-24] MEDS ORDERED: ASPIRIN 81MG CHEW TAB ONE (11:52)
[2022-09-24] MEDS ORDERED: TICAGRELOR 90 MG TABLET ONE (11:52)
[2022-09-24] MEDS ORDERED: NITROGLYCERIN 0.4 MG SL TAB SL PRN (12:30)
[2022-09-24] MEDS ORDERED: 0.9%NACL 1000ML 1,000 ML IV SCH (12:30)
[2022-09-24] MEDS ORDERED: GLUCAGON 1MG KIT 1 MG ML IM PRN (12:30)
[2022-09-24] MEDS ORDERED: DEXTROSE 50%-WATER 50 ML DISP.SYRIN IV PRN (12:30)
[2022-09-24] MEDS ORDERED: INSULIN HUMULIN R 100 UNIT/ML 3ML SQ SCH (16:30)
[2022-09-24] MEDS ORDERED: TICAGRELOR 90 MG TABLET PO SCH (21:00)
== END 2022-09-24 17:30 | disposition home or self-care (01) ==
LOC: DAH 06:32
PROVIDERS: ATTEND Internal Medicine Cardiovascular Disease
DX: I25.110 Atherosclerotic heart disease of native coronary artery with unstable angina pectoris (principal); I11.0 Hypertensive heart disease with heart failure; I50.32 Chronic diastolic (congestive) heart failure; E78.5 Hyperlipidemia, unspecified; F32.A Depression, unspecified; I87.2 Venous insufficiency (chronic) (peripheral); E11.51 Type 2 diabetes mellitus with diabetic peripheral angiopathy without gangrene; E11.59 Type 2 diabetes mellitus with other circulatory complications; Z79.899 Other long term (current) drug therapy; Z79.01 Long term (current) use of anticoagulants; Z98.890 Other specified postprocedural states; Z82.49 Family history of ischemic heart disease and other diseases of the circulatory system; Z83.3 Family history of diabetes mellitus; Z90.49 Acquired absence of other specified parts of digestive tract; Z98.84 Bariatric surgery status; Z87.11 Personal history of peptic ulcer disease; Z79.4 Long term (current) use of insulin; Z79.82 Long term (current) use of aspirin; Z79.84 Long term (current) use of oral hypoglycemic drugs
CPT/HCPCS: 80048; 85025; 85610; 85730; 36415; 71045; 93005; 93459; 82948; C9600; Q9965 ×2; C1769 ×2; C1894 ×2; C1874; C1760; C1887; J3010; J3490 ×2; J7030; J2250; J1644; J0583; Q9967; A4215; A4222; A4221; A4663; A4216; A4606; A4223 ×3; 99156; 99157

== ENCOUNTER → 2022-10-29 | Outpatient (CLI) | payer OTHER, MEDICARE | END | disposition home or self-care (01) | LOC: RAH 08:50 | PROVIDERS: ATTEND Family Medicine | DX: Z12.31 Encounter for screening mammogram for malignant neoplasm of breast (principal) | CPT/HCPCS: 77067 ==

== ENCOUNTER → 2023-01-07 | Outpatient (CLI) | payer OTHER, MEDICARE | END | disposition home or self-care (01) | LOC: LAB 12:45 | PROVIDERS: ATTEND Internal Medicine Gastroenterology | DX: R63.4 Abnormal weight loss (principal) | CPT/HCPCS: 36415; 82565; 84520 ==

== ENCOUNTER → 2023-01-11 | Outpatient (CLI) | payer OTHER, MEDICARE ==
[~2023-01-11] MED LIST changes: +IOHEXOL 350 MG/ML 100ML INFUS..BTL IV ONE
== END | disposition home or self-care (01) ==
LOC: RAH 10:13
PROVIDERS: ATTEND Internal Medicine Gastroenterology
DX: R63.4 Abnormal weight loss (principal); Z90.49 Acquired absence of other specified parts of digestive tract
CPT/HCPCS: 74178; Q9967

== ENCOUNTER 2023-03-28 06:29 | Day surgery (SDC) | payer OTHER, MEDICARE ==
[2023-03-28] VITALS (11 sets, daily range): BP systolic 118–157; BP diastolic 51–88; PULSE 56–62; RESP 11–16
[~2023-03-28] VITALS: Ht 170.2 cm; Wt 52.2 kg
[~2023-03-28 06:29] MED LIST changes: +ATOR20TA65 PO; -ATOR40TA71 PO; +BISA-72 PO; -DULA3PEN SQ; +DULA4.5P SQ; -IOHEXOL 350 MG/ML 100ML INFUS..BTL IV ONE; -LISI10TA24 PO; +LISI5TAB21 PO; -MECL-226 PO; +MULT-415 PO; -NITR0.4T SL; +ONDA-104 PO; +RANO500T2 PO; -RANO500T6 PO; +REPA2TAB8 PO; +TICA90TA PO
[2023-03-28] MEDS: 0.9%NACL 1000ML 1,000 ML IV ONE (08:41)
[2023-03-28] MEDS ORDERED: PROPOFOL 10 MG/ML 20ML VIAL IV ONE ×2 (10:27→10:28)
== END 2023-03-28 12:05 | disposition home or self-care (01) ==
LOC: ENDO 06:29 → DAH 06:29 → ENDO 12:05
PROVIDERS: ATTEND Internal Medicine Gastroenterology
DX: K59.04 Chronic idiopathic constipation (principal); R11.2 Nausea with vomiting, unspecified; K57.30 Diverticulosis of large intestine without perforation or abscess without bleeding; K25.3 Acute gastric ulcer without hemorrhage or perforation; R15.9 Full incontinence of feces; K29.50 Unspecified chronic gastritis without bleeding; K76.0 Fatty (change of) liver, not elsewhere classified; I10 Essential (primary) hypertension; E78.5 Hyperlipidemia, unspecified; F41.9 Anxiety disorder, unspecified; E11.9 Type 2 diabetes mellitus without complications; I25.10 Atherosclerotic heart disease of native coronary artery without angina pectoris; F32.A Depression, unspecified; J45.909 Unspecified asthma, uncomplicated; D50.9 Iron deficiency anemia, unspecified; Z90.49 Acquired absence of other specified parts of digestive tract; Z98.84 Bariatric surgery status; Z98.891 History of uterine scar from previous surgery; Z80.3 Family history of malignant neoplasm of breast; Z80.0 Family history of malignant neoplasm of digestive organs; Z79.84 Long term (current) use of oral hypoglycemic drugs; Z79.82 Long term (current) use of aspirin; Z98.890 Other specified postprocedural states; Z79.899 Other long term (current) drug therapy
CPT/HCPCS: 82948 ×2; 43239; 45378; J7030 ×2; J2704 ×2; A4620; A4215 ×2; A4223; A7002; A4222; A4221; A4663; A4606; J3490

== ENCOUNTER → 2023-07-23 | Outpatient (CLI) | payer OTHER, MEDICARE | END | disposition home or self-care (01) | LOC: SHCH 08:31 | PROVIDERS: ATTEND Internal Medicine Cardiovascular Disease | DX: I87.2 Venous insufficiency (chronic) (peripheral) (principal); I73.9 Peripheral vascular disease, unspecified; I25.118 Atherosclerotic heart disease of native coronary artery with other forms of angina pectoris; I10 Essential (primary) hypertension; E78.5 Hyperlipidemia, unspecified; Z79.899 Other long term (current) drug therapy; Z95.1 Presence of aortocoronary bypass graft; Z68.1 Body mass index [BMI] 19.9 or less, adult | CPT/HCPCS: 93925; 93970 ==

== ENCOUNTER 2024-12-14 13:36 | Emergency (ER) | payer OTHER, MEDICAID ==
[~2024-12-14] VITALS: Ht 172.7 cm; Wt 59.0 kg
--- NOTE | 2024-12-14 13:43 | ERN ---
ED Note History of Present Illness Stated Complaint: BLE PAIN Chief Complaint: LOWER EXTREMITY EDEMA Time Seen by MD: 13:41 Dictation: PATIENT IS A 64-YEAR-OLD FEMALE COMING IN TODAY WITH COMPLAINTS OF INTERMITTENT SWELLING TO HER BILATERAL LOWER EXTREMITIES WORSE ON THE RIGHT FOR THE LAST MONTH. NO SOB NO NAUSEA VOMITING NO CHEST PAIN NO BACK PAIN. HER FLOOR FINISHER'S HIS DOCTOR ALANA WHO ADVISED HER TO HAVE AN ULTRASOUND DONE HOWEVER IT WAS NOT SCHEDULED UNTIL LATER IN DECEMBER. ONLY THERE WAS NO EDEMA NO SWELLING SHE DOES HAVE IMAGES ON HER PHONE SHOWING THAT THERE SWELLING INTERMITTENTLY WHEN SHE IS IN A DEPENDENT POSITION. Allergies: Coded Allergies: Penicillins (Unverified Allergy, Unknown, 07/12/14) Home Meds Reported Medications Ondansetron HCl (Ondansetron HCl) 4 Mg Tablet, 4 MG PO DAILY, TAB 03/26/23 Multivitamin (Daily Vitamin Formula) 1 Each Tablet, 1 EACH PO DAILY, TAB 03/26/23 Dulaglutide (Trulicity) 4.5 Mg/0.5 Ml Pen.injctr, 4.5 MG SQ QWEEK 03/26/23 Repaglinide (Repaglinide) 2 Mg Tablet, 2 MG PO BID, TAB 03/26/23 Empagliflozin (Jardiance) 25 Mg Tablet, 25 MG PO DAILYDINNER, TAB 03/26/23 Ticagrelor (Brilinta) 90 Mg Tablet, 90 MG PO BID, TAB 03/26/23 Ranolazine (RANEXA) 500 Mg Tab.er.12h, 500 MG PO DAILYDINNER, TAB 03/26/23 Lisinopril (Lisinopril) 5 Mg Tablet, 5 MG PO DAILY, TAB 03/26/23 Bisacodyl (Dulcolax) 5 Mg Tablet.dr, 5 MG PO DAILY, TAB 03/26/23 Furosemide (Furosemide) 20 Mg Tablet, 20 MG PO DAILY, TAB 03/26/23 Atorvastatin Calcium (Atorvastatin Calcium) 20 Mg Tablet, 20 MG PO DAILY, TAB 03/26/23 Aspirin (Aspirin EC) 81 Mg Tablet.dr, 1 TAB PO DAILY 09/20/22 Ergocalciferol (Vitamin D2) (Vitamin D2) 1,250 Mcg Capsule, 1 CAP PO QWEEK 09/20/22 Lansoprazole (Lansoprazole) 30 Mg Capsule.dr, 1 CAP PO DAILY 09/20/22 Empagliflozin (Jardiance) 25 Mg Tablet, 1 TAB PO DAILY 09/20/22 Sertraline HCl (Sertraline HCl) 100 Mg Tablet, 100 MG PO DAILY, TAB 07/12/14 Metformin HCl (Metformin HCl) 1,000 Mg Tablet, 1000 MG PO BID, TAB 07/12/14 Past Medical History Past Medical History: Diabetes-Type II, High Cholesterol, Hypertension Surgical History: CABG, Bariatric Surgery, Surgical History Other: RIGHT SHOULDER / D AND C History: Not Applicable RN Note Reviewed/Agreed w/PFSH: Yes Review of System Dictation CONSTITUTIONAL: NEGATIVE EXCEPT FOR HPI HEAD/FACE: NEGATIVE EXCEPT FOR HPI EENT: NEGATIVE EXCEPT FOR HPI RESPIRATORY: NEGATIVE EXCEPT FOR HPI GASTROINTESTINAL/ABDOMINAL: NEGATIVE EXCEPT FOR HPI GENITOURINARY: NEGATIVE EXCEPT FOR HPI MUSCULOSKELETAL: NEGATIVE EXCEPT FOR HPI BILATERAL LOWER EXTREMITY SWELLING INTEGUMENTARY: NEGATIVE EXCEPT FOR HPI NEUROLOGICAL/PSYCH: NEGATIVE EXCEPT FOR HPI HEMATOLOGIC/LYMPHATIC: NEGATIVE EXCEPT FOR HPI ALL SYSTEMS NEGATIVE, EXCEPT NOTED ABOVE. 13 POINT REVIEW OF SYSTEMS ASSESSED AND ALL NEGATIVE EXCEPT FOR ABOVE. Initial Vital Sign VS Vital Signs Date Time Temp Pulse Resp B/P (MAP) Pulse Ox O2 Delivery O2 Flow Rate FiO2 12/14/24 13:38 98.4 85 16 102/75 100 Room Air 0 Physical Exam Dictation VITAL SIGNS REVIEWED GENERAL APPEARANCE: ALERT, ORIENTED X 3, NO ACUTE DISTRESS, WELL DEVELOPED, NOU RISHED. HEAD AND FACE: NON-TRAUMATIC. EYES: PERRL, PINK CONJUNCTIVAS, EYELID NO TRAUMA, ANTERIOR CHAMBER WITH ARCUS SENILIS. EARS: PINNAS INTACT AND NO SIGNS OF TRAUMA OR ERYTHEMA EAR CANALS CLEAR AND NO DISCHARGE TM NO ERYTHEMA NOSE: NO DISCHARGE, NO BLEEDING. OROPHARYNX: MOUTH NORMAL, TONGUE PINK, PHARYNX CLEAR,NO ERYTHEMA, TONSILS NO EXUDATES, NO ABSCESSES NOTED, MUCOUS ME M[place] MOIST NECK: SUPPLE, NON-TENDER, NO THYROMEGALY, NO MASSES, NO JVD, NO BRUITS BREAST:DEFERRED CHEST:NO TENDERNESS, NO CREPITUS, NO PARADOXICAL MOVEMENT, NO RETRACTIONS LUNGS:CLEAR, WELL-VENTILATED, SYMMETRIC, NO RALES, NO WHEEZING, NO RHONCHI, NO STRIDOR, GOOD BREATH SOUNDS BILATERALLY HEART: REGULAR RATE, REGULAR RHYTHM, NO MURMUR, NO GALLOPS VASCULAR: NO PERIPHERAL EDEMA, ABDOMEN: SOFT, POSITIVE BOWEL SOUNDS, NONDISTENDED, NO GUARDING, NONTENDER, NO REBOUND, NO MASSES NO HEPATOMEGALY, NO SPLENOMEGALY, NO BURROUGHS'S SIGN, NO HERNIAS. RECTAL: DEFERRED GENITAL: DEFERRED NEUROLOGICAL: NORMAL SPEECH, MOTOR FUNCTION INTACT, SENSORY FUNCTION INTACT MUSCULOSKELETAL: NECK NONTENDER, FULL RANGE OF MOTION, BACK NONTENDER, FULL RANGE OF MOTION, EXTREMITIES: NONTENDER, FULL RANGE OF MOTION MILD SWELLING TO BILATERAL CALVES NEGATIVE HOMANS SIGN NO ERYTHEMA SKIN: COLOR PINK, DRY, NO TURGOR, NO RASH, NO LACERATIONS, NO ABRASIONS, NO CONTUSIONS. LYMPHATIC: DEFERRED Results (Laboratory/Radiology) Laboratory/Radiology EXAM: US for Deep Venous Thrombosis, bilateral Lower Extremity. CLINICAL HISTORY: Leg Pain and Swelling TECHNIQUE: Real-time ultrasound scan of the veins of the bilateral lower extremity with color Doppler flow, spectral waveform analysis and compression. COMPARISON: None provided. FINDINGS: DEEP VEINS: The common femoral, superficial femoral, and popliteal veins are echolucent and compressible. There is normal color Doppler flow throughout. The visualized calf veins appear patent. SOFT TISSUES: No popliteal fossa cyst or other abnormalities. IMPRESSION: No deep venous thrombosis evident on bilateral lower extremity examination. /[facility] Reviewed?: Yes ED Course ED Course Orders Procedure Category Date Status Time Us Venous Doppler US 12/14/24 Resulted Bilateral 13:41 Vital Signs Date Time Temp Pulse Resp B/P (MAP) Pulse Ox O2 Delivery O2 Flow Rate FiO2 12/14/24 13:38 98.4 85 16 102/75 100 Room Air 0 Medical Decision Making [facility] 1725/MEDICAL DISCHARGE MAKING BASED ON BILATERAL DOPPLER ULTRASOUND TO RULE OUT DVT PER DR. WARNER. DOPPLER ULTRASOUND NEGATIVE FOR DVT BILATERALLY. PATIENT DISCHARGED HOME WITH INTERMITTENT EDEMA TOLD TO ELEVATE HER LEGS AND SEE HER DOCTOR DX & DISP Disposition: Discharge Departure Impression: Primary Impression: Dependent edema Condition: Stable Additional Instructions: FOLLOW-UP WITH PRIMARY CARE PROVIDER IN 1 TO 2 DAYS. TAKE MEDICATIONS DIRECTED HERE IN THE EMERGENCY ROOM. OKAY TO CONTINUE HOME MEDICATIONS UNLESS OTHERWISE DISCUSSED DURING YOUR VISIT IN THE EMERGENCY ROOM TODAY. RETURN TO YOUR NEAREST EMERGENCY ROOM IF SYMPTOMS WORSEN OR IF THERE IS NO IMPROVEMENT. CALL 911 IF YOU NEED IMMEDIATE ASSISTANCE. TAKE TYLENOL OR MOTRIN [id number] NEEDED AND IF NO CONTRAINDICATIONS ARE PRESENT. INCREASE ORAL HYDRATION. A WOUND CULTURE OR URINE CULTURE WAS ORDERED HERE IN THE EMERGENCY ROOM DEPARTMENT PLEASE FOLLOW-UP WITH PRIMARY CARE PROVIDER AND ADVISE THEM TO GET REPEAT PORTS FROM OUR FACILITY. IF YOU HAD ANY BREE WRAP/SPLINTS THAT WERE APPLIED HERE, PLEASE DO NOT REMOVE THEM UNTIL YOU SEE YOUR PRIMARY CARE OR SPECIALTY. ELEVATE LEGS MUCH POSSIBLE. FOLLOW UP WITH YOUR PRIMARY CARE DOCTOR OR FLOOR FINISHER'S NEEDED. Referrals: EMETERIO TURNER DO (PCP) Time of Disposition: 17:24 I have reviewed the case, and I agree with, Diagnosis and Plan [facility] [employer] Dec 14, 2024 13:43
--- NOTE | 2024-12-14 15:04 | HMCIMG ---
EXAM: US for Deep Venous Thrombosis, bilateral Lower Extremity. CLINICAL HISTORY: Leg Pain and Swelling TECHNIQUE: Real-time ultrasound scan of the veins of the bilateral lower extremity with color Doppler flow, spectral waveform analysis and compression. COMPARISON: None provided. FINDINGS: DEEP VEINS: The common femoral, superficial femoral, and popliteal veins are echolucent and compressible. There is normal color Doppler flow throughout. The visualized calf veins appear patent. SOFT TISSUES: No popliteal fossa cyst or other abnormalities. IMPRESSION: No deep venous thrombosis evident on bilateral lower extremity examination. /Sandi
[2024-12-14 17:57] VITALS: BP 112/61; PULSE 61; RESP 20; TEMP 98.2; O2SAT 97
== END 2024-12-14 18:07 | disposition home or self-care (01) ==
LOC: EDH 13:36
DX: R60.0 Localized edema (principal); E11.9 Type 2 diabetes mellitus without complications; E78.00 Pure hypercholesterolemia, unspecified; I10 Essential (primary) hypertension; Z79.82 Long term (current) use of aspirin; Z79.84 Long term (current) use of oral hypoglycemic drugs; Z79.899 Other long term (current) drug therapy; Z88.0 Allergy status to penicillin; Z95.1 Presence of aortocoronary bypass graft
CPT/HCPCS: 93970; 99284